=== PATIENT | male | born 1995 | race African-American/Black ===

== ENCOUNTER 2020-09-06 01:50 | Emergency (ER) | payer MEDICAID ==
[~2020-09-06] VITALS: Ht 175.3 cm; Wt 77.0 kg
[2020-09-06 01:59] VITALS: BP 116/52
== END 2020-09-06 03:37 ==
LOC: ED 02:00
DX: J03.00 Acute streptococcal tonsillitis, unspecified (principal); M54.2 Cervicalgia; R50.9 Fever, unspecified
CPT/HCPCS: 87081; 87880; 99283